=== PATIENT | female | born 1960 | race Caucasian/White ===

== ENCOUNTER 2016-05-09 20:34 | Inpatient (IN) | payer OTHER ==
[~2016-05-09] VITALS: Ht 165.1 cm; Wt 92.7 kg
[~2016-05-09 20:34] MED LIST: ALLEGRA30 MG PO; ALLERGY RELIEF1 EAC4 PO; ALLERGY RELIEF10 M1 PO; CIPRO500 MG PO; CLARITIN10 M3 PO; COLACE100 MG PO; COMBIVENT200 INHALA IH; COMPAZINE10 MG PO; CRESTOR40 MG PO; Colace PO; Combivent IH; FLAGYL500 MG PO; FORTAMET1000 M1 PO; GLUCOPHAGE1000 MG PO; HYDROCODONE CO120 ML PO; Habitrol,Nicoderm CQ TD; LEVAQUIN500 MG PO; LICE TREATMENT118 ML TP; LISINOPRIL10 MG PO; Levaquin PO; MAGIC MOUTHWASH1 ML MM; MIRALAX17 GM PO; MOBIC15 MG PO; MULTI-VITAMIN-1 EACH PO; Miralax, Glycolax PO; NICODERM CQ1 EAC2 TD; OMEPRAZOLE40 M1 PO; OXYCODONE-APAP1 EACH PO; PANTOPRAZOLE SO40 MG PO; PRAVACHOL40 MG PO; PRILOSEC40 MG PO; PRINIVIL10 MG PO; PROMETHAZINE HC25 M1 PO; PROTONIX40 MG PO; PROVENTIL,2.5 MG/3 M IH; Pravachol PO; Protonix PO; REGLAN5 MG PO; SPIRIVA1 INHALATI IH; STOOL SOFTENER100 MG PO; TESSALON PERLE100 MG PO; Tessalon Perle PO; XANAX0.5 MG PO; ZITHROMAX250 MG PO; ZOFRAN ODT4 MG PO; ZOFRAN4 MG PO; Zestril,Prinivil PO; predniSONE PO
[2016-05-09 22:54] LABS: ADD MIUA? NO; BILIRUBIN SMALL; BLOOD NEGATIVE; COLOR YELLOW ((YELLOW)); GLUCOSE (STRIP) 100; KETONES TRACE; LEUKOCYTES NEGATIVE; NITRITE NEGATIVE; PROTEIN (STRIP) TRACE; SPECIFIC GRAVITY 1.024 (1.000-1.030)
[2016-05-09 23:20] LABS: EOSINOPHIL (%) 1.6 % (0-5); EOSINOPHIL COUNT 0.1 K/uL (0-0.3); HEMATOCRIT 41.5 % (36.0-46.0); IMMATURE GRANULOCYTE (%) 0.1 % (0.0-0.7); IMMATURE GRANULOCYTE COUNT 0.1 K/uL; LYMPHOCYTE COUNT 2.3 K/uL (1.0-2.8); MCH 32.4 PG (29.0-34.0); MCHC 35.7 G/DL (30.0-36.0); MCV 90.8 FL (83-99); MONOCYTE (%) 9.2 % (3-12); MONOCYTE COUNT 0.8 K/uL (0-0.8); NEUTROPHIL (%) 60.1 % (45-76); NEUTROPHIL COUNT 4.9 K/uL (1.8-6.4); PLATELET COUNT 193 K/uL (156-360); RED BLOOD COUNT 4.57 M/uL (3.80-5.20); WHITE BLOOD COUNT 8.1 K/uL (4.1-10.2)
[2016-05-09 23:28] LABS: CHLORIDE 103 mEq/L (99-109); POTASSIUM 3.9 mEq/L (3.7-5.4); SODIUM 141 mEq/L (136-147)
[2016-05-09 23:29] LABS: GLUCOSE 206 mg/dL (70-99)
[2016-05-09 23:31] LABS: ANION GAP 11 MEQ/L (2-14)
[2016-05-09 23:33] LABS: GFR ESTIMATE (CALCULATED) > 59 mL/min/
[2016-05-09 23:34] LABS: UREA NITROGEN (BUN) 10 mg/dL (9-23)
[2016-05-09 23:39] LABS: CREATINE KINASE 64 IU/L (1-294)
[2016-05-09 23:58] LABS: TROP-I INTERPRETATION NEGATIVE; TROPONIN-I < 0.01 ng/mL (0.0-0.30)
[2016-05-10] MEDS ORDERED: METFORMIN HCL1000 MG PO (01:30)
[2016-05-10 03:50] LABS: HDL CHOLESTEROL 43 MG/DL (Desirable>=50); NON-HDL CHOLESTEROL 288 mg/dL (Desirable<160); TOTAL CHOLESTEROL 331 mg/dL (Desirable<200); TRIGLYCERIDES 424 MG/DL (Normal: <150)
[2016-05-10 05:09] VITALS: BP 155/81
[2016-05-10 06:39] LABS: HEMATOCRIT 41.2 % (36.0-46.0); MCH 31.9 PG (29.0-34.0); MCHC 34.5 G/DL (30.0-36.0); MCV 92.6 FL (83-99); MEAN PLAT.VOLUME 10.7 uM^3 (9.5-12.4); PLATELET COUNT 180 K/uL (156-360); RBC DIS.WIDTH-CV 12.4 % (11.8-14.6); RBC DIS.WIDTH-SD 42.3 % (39-53); RED BLOOD COUNT 4.45 M/uL (3.80-5.20); WHITE BLOOD COUNT 6.5 K/uL (4.1-10.2)
[2016-05-10 07:12] LABS: ALKALINE PHOSPHATASE 54 IU/L (3-129); ANION GAP 10 MEQ/L (2-14); CHLORIDE 106 MEQ/L (99-109); GFR ESTIMATE (CALCULATED) > 59 mL/min/; GLUCOSE 159 mg/dL (70-99); SAMPLE HEMOLYSIS CHECK 0; SAMPLE ICTERIC CHECK 0; SAMPLE LIPEMIA CHECK 0; SODIUM 139 MEQ/L (136-147); TOTAL BILIRUBIN 0.4 MG/DL (0.0-1.0); UREA NITROGEN (BUN) 9 mg/dL (9-23)
[2016-05-10 07:46] LABS: Estimated Average Glucose 151 mg/dL (70-123); HEMOGLOBIN A1c (GLYCOHEMOGLOB) 6.9 % HGB (Below 5.7)
[2016-05-10 08:00] VITALS: BP 146/67
[2016-05-10 12:00] VITALS: BP 132/69
[2016-05-10 16:00] VITALS: BP 169/86
[2016-05-10 19:56] VITALS: BP 138/69
[2016-05-11 02:05] VITALS: BP 143/75
[2016-05-11 07:28] LABS: EOSINOPHIL (%) 1.6 % (0-5); EOSINOPHIL COUNT 0.1 K/uL (0-0.3); HEMATOCRIT 40.8 % (36.0-46.0); IMMATURE GRANULOCYTE (%) 0.2 % (0.0-0.7); LYMPHOCYTE COUNT 2.2 K/uL (1.0-2.8); MCH 31.8 PG (29.0-34.0); MCHC 34.3 G/DL (30.0-36.0); MCV 92.7 FL (83-99); MEAN PLAT.VOLUME 10.9 uM^3 (9.5-12.4); MONOCYTE (%) 8.6 % (3-12); MONOCYTE COUNT 0.5 K/uL (0-0.8); NEUTROPHIL (%) 54.1 % (45-76); NEUTROPHIL COUNT 3.4 K/uL (1.8-6.4); PLATELET COUNT 163 K/uL (156-360); RBC DIS.WIDTH-CV 12.4 % (11.8-14.6); RBC DIS.WIDTH-SD 42.2 % (39-53); WHITE BLOOD COUNT 6.3 K/uL (4.1-10.2)
[2016-05-11 07:30] VITALS: BP 129/84
[2016-05-11 07:31] LABS: ANION GAP 8 MEQ/L (2-14); CHLORIDE 106 MEQ/L (99-109); GFR ESTIMATE (CALCULATED) > 59 mL/min/; GLUCOSE 138 mg/dL (70-99); POTASSIUM 3.8 MEQ/L (3.7-5.4); SAMPLE HEMOLYSIS CHECK 0; SAMPLE ICTERIC CHECK 0; SAMPLE LIPEMIA CHECK 0; SODIUM 139 MEQ/L (136-147); UREA NITROGEN (BUN) 10 mg/dL (9-23)
[2016-05-11 08:07] LABS: POINT-OF-CARE METER ID UU14174225
[2016-05-11 12:15] VITALS: BP 160/93
[2016-05-11 15:35] VITALS: BP 157/90
[2016-05-11 20:00] VITALS: BP 162/79
[2016-05-12] VITALS: BP 162/82
[2016-05-12 04:00] VITALS: BP 143/73
[2016-05-12 08:11] VITALS: BP 127/74
[2016-05-12 08:13] LABS: POINT-OF-CARE METER ID UU14174225
[2016-05-12 08:28] LABS: HEMATOCRIT 41.1 % (36.0-46.0); MCH 31.7 PG (29.0-34.0); MCV 90.5 FL (83-99); MEAN PLAT.VOLUME 10.6 uM^3 (9.5-12.4); PLATELET COUNT 164 K/uL (156-360); RBC DIS.WIDTH-CV 12.4 % (11.8-14.6); RBC DIS.WIDTH-SD 40.5 % (39-53); RED BLOOD COUNT 4.54 M/uL (3.80-5.20); WHITE BLOOD COUNT 5.9 K/uL (4.1-10.2)
[2016-05-12 08:59] LABS: ANION GAP 9 MEQ/L (2-14); CHLORIDE 103 MEQ/L (99-109); GFR ESTIMATE (CALCULATED) > 59 mL/min/; GLUCOSE 141 mg/dL (70-99); POTASSIUM 3.6 MEQ/L (3.7-5.4); SAMPLE HEMOLYSIS CHECK 0; SAMPLE ICTERIC CHECK 0; SAMPLE LIPEMIA CHECK 0; SODIUM 138 MEQ/L (136-147); UREA NITROGEN (BUN) 11 mg/dL (9-23)
[2016-05-12 15:58] VITALS: BP 131/80
[2016-05-12 17:29] LABS: POINT-OF-CARE METER ID UU14174225
[2016-05-12 19:40] VITALS: BP 174/103
[2016-05-12 22:38] LABS: POINT-OF-CARE METER ID UU14174225
[2016-05-13] VITALS: BP 140/80
[2016-05-13 03:59] VITALS: BP 146/75
[2016-05-13 07:34] VITALS: BP 150/78
[2016-05-13 07:38] LABS: POINT-OF-CARE METER ID UU14174225
[2016-05-13 11:16] LABS: POINT-OF-CARE METER ID UU14174225
[2016-05-13 11:19] VITALS: BP 141/92
[2016-05-13 15:15] VITALS: BP 138/74
[2016-05-13 19:50] VITALS: BP 130/66
[2016-05-14] VITALS (7 sets, daily range): BP systolic 125–173; BP diastolic 70–87
[2016-05-15] VITALS: BP 121/69
[2016-05-15 04:26] VITALS: BP 156/81
[2016-05-15 08:04] VITALS: BP 140/79
[2016-05-15 10:52] LABS: POINT-OF-CARE METER ID UU14174225
[2016-05-15 11:06] VITALS: BP 131/79
[2016-05-15 15:14] VITALS: BP 143/73
[2016-05-15 16:14] LABS: POINT-OF-CARE METER ID UU14174225
[2016-05-15 19:47] VITALS: BP 144/74
[2016-05-16] VITALS: BP 124/65
[2016-05-16 03:52] VITALS: BP 134/71
[2016-05-16 07:45] VITALS: BP 126/72
[2016-05-16 11:56] VITALS: BP 122/69
[2016-05-16 16:21] VITALS: BP 141/92
[2016-05-16 19:49] VITALS: BP 150/85
[2016-05-17] VITALS (8 sets, daily range): BP systolic 110–149; BP diastolic 65–95
[2016-05-17 10:48] LABS: HEMATOCRIT 41.7 % (36.0-46.0); MCH 32.8 PG (29.0-34.0); MCV 91.2 FL (83-99); MEAN PLAT.VOLUME 10.9 uM^3 (9.5-12.4); PLATELET COUNT 170 K/uL (156-360); RBC DIS.WIDTH-CV 12.3 % (11.8-14.6); RBC DIS.WIDTH-SD 40.5 % (39-53); RED BLOOD COUNT 4.57 M/uL (3.80-5.20); WHITE BLOOD COUNT 6.4 K/uL (4.1-10.2)
[2016-05-17 11:30] LABS: ANION GAP 8 MEQ/L (2-14); CHLORIDE 101 MEQ/L (99-109); GFR ESTIMATE (CALCULATED) > 59 mL/min/; GLUCOSE 190 mg/dL (70-99); POTASSIUM 4.1 MEQ/L (3.7-5.4); SAMPLE HEMOLYSIS CHECK 0; SAMPLE ICTERIC CHECK 0; SAMPLE LIPEMIA CHECK 0; SODIUM 136 MEQ/L (136-147); UREA NITROGEN (BUN) 16 mg/dL (9-23)
[2016-05-17] MEDS ORDERED: POLYETHYLENE GL17 GM PO (15:40)
[2016-05-17] MEDS ORDERED: ASPIRIN EC325 MG PO (15:40)
[2016-05-17] MEDS ORDERED: TYLENOL REGULA325 MG PO (15:40)
[2016-05-17] MEDS ORDERED: ENDOCET 5-3251 EACH PO (15:40)
[2016-05-17] MEDS ORDERED: NICOTINE PATCH1 EAC2 TD (15:40)
[2016-05-17] MEDS ORDERED: ATORVASTATIN CA40 MG PO (15:40)
[2016-05-18 07:42] VITALS: BP 120/76
[2016-05-18 11:13] VITALS: BP 132/72
[2016-05-18] MEDS ORDERED: GLUCOPHAGE1000 MG PO (11:23)
[2016-05-18] MEDS ORDERED: COLACE100 MG PO (11:42)
== END 2016-05-18 15:40 | DRG 65 ==
LOC: RME 20:34 → EME 20:34 → EDOF 05-10 02:32 → 5SOUTH 05-10 02:32
PROVIDERS: Emergency Medicine; Hospitalist; Internal Medicine; Physician Assistant
DX: I63.9 Cerebral infarction, unspecified (principal); I69.354 Hemiplegia and hemiparesis following cerebral infarction affecting left non-dominant side; R91.1 Solitary pulmonary nodule; E11.65 Type 2 diabetes mellitus with hyperglycemia; I10 Essential (primary) hypertension; J44.9 Chronic obstructive pulmonary disease, unspecified; E78.00 Pure hypercholesterolemia, unspecified; E78.5 Hyperlipidemia, unspecified; E66.01 Morbid (severe) obesity due to excess calories; F17.200 Nicotine dependence, unspecified, uncomplicated; Z91.14 Patient's other noncompliance with medication regimen; Z88.0 Allergy status to penicillin; Z88.2 Allergy status to sulfonamides; Z66 Do not resuscitate; Z68.34 Body mass index [BMI] 34.0-34.9, adult; Z85.118 Personal history of other malignant neoplasm of bronchus and lung
CPT/HCPCS: 70450; 70551; 80048; 80053; 80061; 81003; 82550; 82948; 83036; 84484; 85025; 85027; 92522 GN; 92526 GN; 92610 GN; 93005; 93306; 93880; 97530 GO; 97530 GP; 99202; 99281; 99285; J1644; J1815; J7030